=== PATIENT | male | born 1955 | race Caucasian/White ===

== ENCOUNTER 2018-05-09 11:03 | Day surgery (SDC) | payer BC ==
[~2018-05-09] VITALS: Ht 182.9 cm; Wt 140.9 kg
--- NOTE | ~2018-05-09 | OP ---
PATIENT NAME: AMI AWANTON MEDICAL RECORD: [id number] :59 LOCATION:D[facility] ADMISSION DATE: SURGEON: HOLLI RODRIGUEZ MD DATE OF OPERATION: 05/09/2018 PROCEDURE: EGD with biopsy. MICROFICHE DUPLICATOR: Holli Rodriguez MD SCOPE: Olympus video gastroscope. MEDICATIONS GIVEN: Propofol 200 mg IV push, O2 2-4 liters. 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 FINDINGS: Informed consent was given. The patient was made comfortable with the above medications. After reaching an adequate level of sedation by slow IV push, the patient was placed on his left side. The endoscope was then advanced under direct visualization through the posterior pharyngeal area and advanced to the distal esophagus. Evidence of Chaney's esophagus was seen in this area and biopsies were obtained. Additionally, the patient also had a nonstenotic Schatzki's ring as well as a small hiatal hernia in the cardia of the stomach, which was viewed both on direct and retroflex views. On entering the stomach, the gastric mucosa was very carefully inspected. In the cardia, fundus, body and antral area, only mild inflammation was seen. No ulcers, no erosions were appreciated. A Helicobacter histopathology biopsy was taken at the antral area. The scope was then introduced into the duodenal bulb and advanced into the second portion. Again, only minimal inflammation was appreciated and biopsies were obtained. The scope was then withdrawn. IMPRESSION: 1. Evidence of Chaney's esophagus at the distal esophageal area, biopsied. 2. Nonstenotic Schatzki's ring. 3. Small hiatal hernia. 4. Mild gastritis, biopsy taken at the antral area for Helicobacter pylori and histopathology. 5. Mild duodenitis, biopsy taken and within the second portion of the duodenum. PLAN: 1. Caution with anti-inflammatory drugs and aspirin please. 2. The patient is to follow reflux precautions stringently, both dietary and positional, not eat late at night. 3. Caution with caffeine, tobacco, alcohol, tomato, citrus, fatty foods and peppermint. The patient should sit up for at least 2 hours after every meal. 4. Continue omeprazole at 20 mg p.o. q.a.m. and famotidine 40 mg p.o. q.h.s. TRANSINT:[id number] Voice Confirmation ID: [id number] DOCUMENT ID: [id number] OPERATIVE REPORT [id number] AMI AWAN BRENDA MD at 1304 CC: PAUL SHAH DO and LULU MATT MD [id number] DICTATION DATE: 05/09/18 1345 PILOT CONTROL OPERATOR: 05/09/18 1426 [facility] 05/09/18 [place] [id number] [place] [id number]
[2018-05-09 12:10] LABS: HEMATOCRIT 51.3 % (42.0-54.0); HEMOGLOBIN 17.3 g/dL (13.5-17.5)
[2018-05-09] MEDS ORDERED: NIFEDIPINE ER90 MG PO (12:48)
[2018-05-09] MEDS ORDERED: PEPCID40 MG PO (12:49)
[2018-05-09] MEDS ORDERED: OMEPRAZOLE20 M1 PO (12:49)
[2018-05-09 12:57] VITALS: BP 195/129; Ht 182.9 cm; Wt 140.9 kg
== END 2018-05-09 14:50 | disposition home or self-care (01) ==
LOC: D.OPS 11:03
PROVIDERS: Anesthesiology
DX: K22.719 Barrett's esophagus with dysplasia, unspecified (principal); K29.70 Gastritis, unspecified, without bleeding